=== PATIENT | male | born 1965 | race Caucasian/White ===

== ENCOUNTER 2024-02-26 07:43 | Emergency (ER) | payer BC, SELFPAY ==
[2024-02-26 07:45] VITALS: BP 104/66; PULSE 58; RESP 16; TEMP 36.7; O2SAT 98
[2024-02-26] MEDS: Fluorescein STRIPS 100/BOX 1 MG OP (08:08)
[2024-02-26] MEDS: Tetracaine 0.5% 4 ML BTL OP (08:08)
[2024-02-26] MEDS: Balanced Salt Solution 15 ML BTL OP (08:08)
--- NOTE | 2024-02-26 08:17 | ED.GENADUL_ITS ---
Discharge Plan Disposition Patient Disposition: Home Condition: Stable Discharge Details Clinical Impression: Foreign body in cornea, left eye, initial encounter Primary Care Provider: LisaLocal ED Provider: Jennifer Gonzalez Home Meds and New Rx's Prescriptions: No Action quetiapine [Seroquel] 25 mg tablet 25 mg PO ONCE sertraline 100 mg tablet 100 mg PO DAILY Discharge Instructions Instructions: Foreign Body in Eye ED Additional Instructions: Use the antibiotic ointment as directed 3 times a day while awake for the next 5-7 days. Follow up with [facility] eye care tooday or tomorrow, for further eval and removal. Take Tylenol or Ibuprofen every 4-6 hours as needed for pain. Referrals: [facility] [Outside] - 1 day (Be seen today or tomorrow for foreign body removal) Discharge Data Discharge Date/Time-TO BE ENTERED AT DEPARTURE: 02/26/24 08:30 HPI General Mode of arrival: ambulatory . Date/Time Provider Initiated Documentation: 02/26/24 07:50 . Limitations to Documentation: no limitations . Information obtained by: patient, RN notes reviewed and old records reviewed . HPI Narrative: 58 year old patient presents to the ED today with foreign body sensation into his left eye x 2 days. patient was mountain biking and got mud or other unknown substance into [facility]. he was sunable to flush it out at home [employer]. He has no other associated symptoms or complaints at this time Related Data Home Medications ?Medication ?Instructions ?Recorded ?Confirmed quetiapine 25 mg tablet (Seroquel) 25 mg PO ONCE 02/26/24 02/26/24 sertraline 100 mg tablet 100 mg PO DAILY 02/26/24 02/26/24 Allergies Allergy/AdvReac Type Severity Reaction Status Date / Time No Known Allergies Allergy Unverified 02/26/24 07:49 General Stated Complaint: EyeProblem DARWIN: 4 Review of Systems All systems reviewed & are unremarkable except as noted in HPI and below Eyes Eyes: Reports as per HPI and Reports irritation Exam Const General: cooperative Nutritional Appearance: average body habitus Orientation: alert and awake Eyes Cornea: corneas abnormal on the left fluorescein used and foreign body other (Unknown) and fluorescein used Pupils: PERRL EOM: EOM intact bilaterally Direct ophthalmoscopy: normal light reflex and anterior chamber normal Eyes/upper lids images: 2 1. Foreign body visualized Course Vital Signs Vital signs: Vital Signs Temperature 36.7 C 02/26/24 07:45 Pulse 58 L 02/26/24 07:45 Respiratory Rate 16 02/26/24 07:45 Blood Pressure 104/66 02/26/24 07:45 Pulse Oximetry 98 02/26/24 07:45 Temperature 36.7 C 02/26/24 07:45 Temperature Source Skin 02/26/24 07:45 Pulse 58 L 02/26/24 07:45 Respiratory Rate 16 02/26/24 07:45 Respiratory Effort Normal, Non-Labored 02/26/24 08:09 Blood Pressure 104/66 02/26/24 07:45 Blood Pressure Position Sitting 02/26/24 07:45 Pulse Oximetry 98 02/26/24 07:45 Oxygen Delivery Method Room Air 02/26/24 07:45 Oxygen Flow Rate 0 02/26/24 07:45 Pain Level 5 02/26/24 07:45 Procedures FB Removal Eye Time Out performed: Yes Location: eye (L) Topical anesthetic used: tetracaine Foreign body: other (Unknown) Evidence of corneal penetration: No Technique: cotton tip swab Procedure performed under: direct visualization with magnification Post-procedure medication: ophthalmic antibiotic and topical anesthetic Patient tolerated procedure: well Complications: incomplete foreign body removal (Will refer to Opthamology and give Erythromycin ) Medical Decision Making 58 year old patient presents to the ED today with foreign body sensation into his left eye x 2 days. patient was mountain biking and got mud or other unknown substance into [facility]. he was sunable to flush it out at home [employer]. He has no other associated symptoms or complaints at this time Valadez lamp exam performed with fluorescein and tetracaine, unable to remove foreign body which was visualized. Will send to [facility] and give Erythromycin ophthalmic ointment. Foreign body visualized with Valadez lamp, no corneal abrasion noted with fluorescein dye, unable to remove foreign body Q-tip. Patient will refer to [facility] for further evaluation and treatment today or tomorrow. Patient and family verbalized understanding. Patient given erythromycin ointment and instructed on use. This text was generated using [employer] system, please disregard any oddities of phrase or misspellings. Quality:SDOH Health Related Social Needs: 2 No Data to Display PFSH All Active Problems Foreign body in cornea, left eye, initial encounter (Acute) Social History Smoking risk assessment performed?: No
[2024-02-26] MEDS: Erythromycin Ophth Oint 3.5 GM TUBE OS (08:19)
--- NOTE | 2024-02-26 09:37 | NUR.NOTE ---
Referral and provider note faxed to [facility] for foreign body, today or tomorrow. Nursing Note:
== END 2024-02-26 08:30 | disposition home or self-care (01) ==
PROVIDERS: Emergency Provider Registered Nurse Emergency
DX: T15.02XA Foreign body in cornea, left eye, initial encounter (principal)
CPT/HCPCS: 99283